=== PATIENT | male | born 2000 | race Caucasian/White ===

== ENCOUNTER 2021-06-12 18:21 | Emergency (ER) | payer OTHER ==
[2021-06-12] MEDS ORDERED: HYDROmorphone 0.5 MG/0.5 ML SYRINGE IM STA (18:57)
[2021-06-12] MEDS ORDERED: KETOROLAC 60 MG/2 ML VIAL IM STA (18:57)
--- NOTE | 2021-06-12 19:26 | ED Physician Documentation ---
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 No history of previous back pain or back injury. Otherwise healthy. No saddle anesthesia. No loss of bowel or bladder function. Review of Systems Constitutional: reports: Reviewed and negative Ears: reports: Reviewed and negative Nose: reports: Reviewed and negative Throat: reports: Reviewed and negative Cardiac: reports: Reviewed and negative Respiratory: reports: Reviewed and negative : reports: Reviewed and negative Skin: reports: Reviewed and negative Musculoskeletal: reports: Back pain Neurologic: reports: Reviewed and negative PD PAST MEDICAL HISTORY - Past Medical History Past Medical History: No - Past Surgical History Past Surgical History: Yes General: Appendectomy - Present Medications Home Medications: Ambulatory Orders Medication Instructions Recorded Confirmed Ibuprofen [Motrin] 600 mg PO Q6H PRN #30 tab 06/12/21 methocarbamoL [Methocarbamol] 750 mg PO BID PRN #15 tablet 06/12/21 - Allergies Allergies/Adverse Reactions: Allergies Allergy/AdvReac Type Severity Reaction Status Date / Time No Known Drug Allergies Allergy Verified 06/12/21 18:30 - Social History Does the pt smoke?: No Smoking Status: Never smoker Does the pt drink ETOH?: Yes Does the pt have substance abuse?: No - Immunizations Immunizations are current?: Yes - POLST Patient has POLST: No PD ED PE EXPANDED - General General: Alert, No acute distress - Cardiac Cardiac: Regular Rate, Radial strong equal, Cap refill < 2 sec - Respiratory Respiratory: Clear to ausultation shavonne. No: Distress, Labored - Back Back: Soft tissue tenderness. No: Vertebral tenderness, Limited ROM (Full range of motion of lower lumbar spine. Mildly antalgic gait. Motor strength 5 of 5 bilateral lower extremities. 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 His exam is relatively reassuring with full range of motion and only mildly antalgic gait. There are no red flags. Patient was given Toradol and half a milligram of Dilaudid with good results. Patient will be started on ibuprofen as well as methocarbamol at home. Advise close follow-up with [facility]. Emergent worrisome return precautions discussed. Departure - Departure Disposition: Home, Self Care Clinical Impression: Low back pain Qualifiers: Chronicity: acute Back pain laterality: midline Sciatica presence: without sciatica Qualified Code(s): M54.5 - Low back pain Instructions: ED Low Back Pain Injury, ED Sprain Strain Lumbar Prescriptions: methocarbamoL [Methocarbamol] 750 mg PO BID PRN #15 tablet PRN Reason: Spasms Ibuprofen [Motrin] 600 mg PO Q6H PRN #30 tab PRN Reason: Pain Comments: Wes you were seen in the emergency department today for acute low back pain after lifting a heavy battery at work. I suspect that you may have herniated a disc however most of the time this will improve with no treatment at all. I recommend that you take the ibuprofen with food 3 times a day for the next 4 to 5 days. Try and stay as mobile as possible, walking frequently. You go long periods without movement your back muscles will get sore and freeze up. I have also prescribed a limited amount of methocarbamol muscle relaxer to help with pain. Use ice on your back for the next 3 to 4 days then you can switch to warm compresses if you find that it makes it feel better. At any point you develop numbness or tingling between your legs, have weakness in your legs, or lose control of your bowel or bladder function then please return immediately to the ER. Follow-up with [facility] in the next 72 hours. [facility] [place]
[2021-06-12 19:55] VITALS: BP 128/80
== END 2021-06-12 19:54 | disposition home or self-care (01) ==
LOC: ED 18:21
DX: M54.5 Low back pain (principal); X50.0XXA Overexertion from strenuous movement or load, initial encounter; Y93.89 Activity, other specified; Y99.0 Civilian activity done for income or pay
CPT/HCPCS: 96372; 99283; J1170